=== PATIENT | female | born 1965 | race Asian ===

== ENCOUNTER 2022-09-23 10:35 | Emergency (ER) | payer BC, SELFPAY ==
[2022-09-23] MEDS ORDERED: NA CHLORIDE 0.9% 1,000 ML ONE (10:59)
[2022-09-23 11:16] LABS: Absolute Lymphocytes (CBC) 1.1 K/uL (0.7-4.9); Hematocrit 37.9 % (36.0-45.0); Lymphocytes % 21.3 % (15.3-44.8); MCV 94.4 fL (80-100); MPV 9.3 fL (7.6-11.3); RBC Red Blood Cell Count 4.02 M/uL (3.86-4.86)
[2022-09-23 11:32] LABS: Albumin 3.6 g/dL (3.4-5.0); Bilirubin Direct 0.1 mg/dL (0-0.2); Bilirubin Indirect, Calculated 0.3 mg/dL (0.2-0.8); Bilirubin Total 0.4 mg/dL (0.2-1.0); Magnesium 2.2 mg/dL (1.6-2.4); Protein, Total 8.3 g/dL (6.4-8.2); Troponin High Sensitivity 3.8 pg/mL (<58.9)
[2022-09-23] MEDS ORDERED: POTASSIUM 25 MEQ EFFERV TAB ONE (11:53)
--- NOTE | 2022-09-23 11:55 | ER ---
Nurse's Notes [facility] Name: Jessica Frazier Age: 57 yrs Sex: Female : 1965 Arrival Date: 09/23/2022 Time: 10:35 Bed 7 Private MD: Diagnosis: Heat exhaustion, unspecified;Syncope Near;Hypokalemia Presentation: 09/23 10:36 Chief complaint: EMS states: they picked the patient up from [place]. patient had been ap3 out fishing this morning, when she got hot and started feeling fatigued. Coronavirus screen: At this time, the client does not indicate any symptoms associated with coronavirus-19. Ebola Screen: No symptoms or risks identified at this time. Initial Sepsis Screen: Does the patient meet any 2 criteria? No. Patient's initial sepsis screen is negative. Does the patient have a suspected source of infection? No. Patient's initial sepsis screen is negative. Risk Assessment: Do you want to hurt yourself or someone else? Patient reports no desire to harm self or others. Onset of symptoms was September 23, 2022. 10:36 Method Of Arrival: EMS: [facility] ap3 10:36 Acuity: BONILLA 3 ap3 Triage Assessment: 10:38 General: Appears in no apparent distress. Behavior is calm, cooperative. Pain: Denies ap3 pain. Neuro: Level of Consciousness is awake, alert, obeys commands, Oriented to person, place, time, Reports she was feeling weak approx 30min [employer], but she states that has resolved.. Cardiovascular: Patient's skin is warm and dry. Respiratory: Airway is patent Respiratory effort is even, unlabored, Respiratory pattern is regular, symmetrical. Historical: - Allergies: 10:37 No Known Allergies; ap3 - Home Meds: 10:37 unknown blood pressure medicaion for High Blood Pressure [Active]; ap3 - PMHx: 10:37 Hypertensive disorder; ap3 - Immunization history:: Client reports receiving the 2nd dose of the Covid vaccine. - Social history:: Smoking status: Patient denies any tobacco usage or history of. Screenin:38 Abuse screen: Denies threats or abuse. Nutritional screening: No deficits noted. ap3 Tuberculosis screening: No symptoms or risk factors identified. 12:08 [facility] ED Fall Risk Assessment (Adult) History of falling in the last 3 months, ap3 including since admission No falls in past 3 months (0 pts) Confusion or Disorientation No (0 pts) Intoxicated or Sedated No (0 pts) Impaired Gait No (0 pts) Mobility Assist Device Used No (0 pt) Altered Elimination No (0 pt) Score/Fall Risk Level 0 - 2 = Low Risk. Vital Signs: 10:36 BP 94 / 61; Pulse 62; Resp 18; Temp 98.8; Pulse Ox 98% ; Weight 65 kg; Pain 0/10; ap3 10:36 Pain Scale: Adult ap3 ED Course: 10:36 Patient arrived in ED. ap3 10:37 Triage completed. ap3 10:38 Arm band placed on left wrist. ap3 10:39 Patient has correct armband on for positive identification. Bed in low position. Call ap3 light in reach. Side rails up X2. Pulse ox on. NIBP on. Door closed. Noise minimized. 10:40 Rosemary Oneill [facility]-C [facility]. sb4 10:40 Lucas Chamberlain MD is Attending Physician. sb4 10:47 Светлана Case, MIRTA is Primary Nurse. ap3 11:01 Initial lab(s) drawn, by md, sent to lab. Inserted saline lock: 20 gauge in right aa5 antecubital area, using aseptic technique. Blood collected. 12:08 No provider procedures requiring assistance completed. IV discontinued, intact, ap3 bleeding controlled, No redness/swelling at site. Pressure dressing applied. Administered Medications: 11:01 Drug: NS 0.9% IV 1000 ml Route: IV; Rate: 1 bolus; Site: right antecubital; aa5 12:09 Follow up: IV Status: Completed infusion ap3 11:51 Drug: Potassium PO Effervescent Tablet 50 mEq Route: PO; ap3 12:09 Follow up: Response: No adverse reaction ap3 Medication: 12:08 VIS not applicable for this client. ap3 Outcome: 11:55 Discharge ordered by . sb4 12:08 Discharged to home ambulatory, with family. ap3 12:08 Condition: good 12:08 Discharge instructions given to patient, Instructed on discharge instructions, follow up and referral plans. Demonstrated understanding of instructions, follow-up care. 12:23 Patient left the ED. ap3 Signatures: Sushma Yepez RN RN aa5 Светална Case RN RN ap3 Rosemary Oneill, PA-C PA-C sb4
--- NOTE | 2022-09-23 11:55 | EDPHYS ---
Physician Documentation [facility] Name: Jessica Frazier Age: 57 yrs Sex: Female : 1965 Arrival Date: 09/23/2022 Time: 10:35 Bed 7 Private MD: ED Physician Lucas Chamberlain HPI: 09/23 11:41 This 57 yrs old Female presents to ER via EMS with complaints of Heat Exposure. sb4 11:41 57-year-old female with past medical history of hypertension presents via EMS after a sb4 near syncopal episode. [place]. She had to sit down and bystanders help cool her off by pouring water onto her. Upon arrival to ED, she reports feeling improved. Historical: - Allergies: 10:37 No Known Allergies; ap3 - Home Meds: 10:37 unknown blood pressure medicaion for High Blood Pressure [Active]; ap3 - PMHx: 10:37 Hypertensive disorder; ap3 - Immunization history:: Client reports receiving the 2nd dose of the Covid vaccine. - Social history:: Smoking status: Patient denies any tobacco usage or history of. ROS: 11:41 Constitutional: Negative for fever, chills, and weight loss, Eyes: Negative for injury, sb4 pain, redness, and discharge, Cardiovascular: Negative for chest pain, palpitations, and edema, Respiratory: Negative for shortness of breath, cough, wheezing, and pleuritic chest pain. 11:41 Abdomen/GI: Positive for nausea, Negative for abdominal pain, vomiting. 11:41 Neuro: Positive for dizziness, near syncope, weakness, Negative for altered mental status, gait disturbance, loss of consciousness, syncope, visual changes. Exam: 11:41 Constitutional: This is a well developed, well nourished patient who is awake, alert, sb4 and in no acute distress. Head/Face: Normocephalic, atraumatic. Eyes: Extra-ocular motions intact. Periorbital areas with no swelling, redness, or edema. Cardiovascular: Regular rate and rhythm with a normal S1 and S2. Respiratory: Lungs have equal breath sounds bilaterally, clear to auscultation and percussion. No rales, rhonchi or wheezes noted. No increased work of breathing, no retractions or nasal flaring. Abdomen/GI: Soft, non-tender, no distension. Skin: Warm, dry with normal turgor. Normal color with no rashes, no lesions, and no evidence of cellulitis. MS/ Extremity: Pulses equal, no cyanosis. Neurovascular intact. Full, normal range of motion. Neuro: Awake and alert, GCS 15, oriented to person, place, time, and situation. Cranial nerves II-XII grossly intact. Motor strength 5/5 in all extremities. Sensory grossly intact. Cerebellar exam normal. Normal gait. 11:41 ENT: Dry mucous membranes. Vital Signs: 10:36 BP 94 / 61; Pulse 62; Resp 18; Temp 98.8; Pulse Ox 98% ; Weight 65 kg; Pain 0/10; ap3 10:36 Pain Scale: Adult ap3 MDM: 10:40 Patient medically screened. sb4 11:41 Differential Diagnosis Acute SC, heat exhaustion, dehydration, rhabdomyolysis. Data sb4 reviewed: vital signs, nurses notes, lab test result(s), and as a result, I will discharge patient. Consideration of Admission/Observation Escalation of care including admission/observation considered. Care significantly affected by the following chronic conditions: Hypertension. Counseling: I had a detailed discussion with the patient and/or guardian regarding: the historical points, exam findings, and any diagnostic results supporting the discharge/admit diagnosis, lab results, to return to the emergency department if symptoms worsen or persist or if there are any questions or concerns that arise at home. 09/23 10:48 Order name: Basic Metabolic Panel; Complete Time: [facility] 09/23 10:48 Order name: CBC with Diff; Complete Time: 11: [facility] 09/23 10:48 Order name: LFT's; Complete Time: : 4 09/23 10:48 Order name: Magnesium; Complete Time: : 4 09/23 10:48 Order name: Troponin HS; Complete Time: : 4 09/23 10:48 Order name: Lipase; Complete Time: : 4 09/23 10:48 Order name: EKG; Complete Time: 10:48 4 09/23 10:48 Order name: Cardiac monitoring; Complete Time: 11: [facility] 09/23 10:48 Order name: EKG - Nurse/Tech; Complete Time: 11: sb4 09/23 10:48 Order name: IV Saline Lock; Complete Time: 11:01 sb4 09/23 10:48 Order name: Labs collected and sent; Complete Time: 11: sb4 09/23 10:48 Order name: O2 Per Protocol; Complete Time: 10:57 sb4 09/23 10:48 Order name: O2 Sat Monitoring; Complete Time: 10:57 sb4 EC:45 Rate is 62 beats/min. Rhythm is regular, Normal Sinus Rhythm. QRS [place] is Normal. NC sb4 interval is normal at 154 msec. QRS interval is normal at 88 msec. QT interval is normal at 436 msec. No Q waves. T waves are Normal. Clinical impression: Normal ECG. Interpreted by me. Reviewed by me. Administered Medications: 11: Drug: NS 0.9% IV 1000 ml Route: IV; Rate: 1 bolus; Site: right antecubital; aa5 12:09 Follow up: IV Status: Completed infusion ap3 11:51 Drug: Potassium PO Effervescent Tablet 50 mEq Route: PO; ap3 12:09 Follow up: Response: No adverse reaction ap3 Disposition Summary: 09/23/22 11:55 Discharge Ordered Location: Home sb4 Problem: new sb4 Symptoms: have improved sb4 Condition: Stable sb4 Diagnosis - Heat exhaustion, unspecified sb4 - Syncope Near sb4 - Hypokalemia sb4 Followup: sb4 - With: Private Physician - When: - Reason: Recheck today's complaints, Continuance of care, Re-evaluation by your physician Discharge Instructions: - Discharge Summary Sheet sb4 - Near-Syncope sb4 - Hypokalemia sb4 - Preventing Heat Exhaustion, Adult sb4 Forms: - Medication Reconciliation Form sb4 - Thank You Letter sb4 - Antibiotic Education sb4 - Prescription Opioid Use sb4 - [email or web address] sb4 Signatures: Dispatcher [employer] Sushma Frank RN RN aa5 Светлана Case RN RN ap3 Rosemary Oneill PA-C PA-C sb4
[2022-09-23 12:51] VITALS: BP 94/61; TEMP 98.8; O2SAT 98
--- NOTE | 2022-09-25 17:17 | EKG ---
Test Date: 2022-09-23 Test Time: 11:02:26 Compensation Manager: ALP MEASUREMENT RESULTS: Intervals: Rate: 62 NE: 154 QRSD: 88 QT: 436 QTc: 442 [place]: P: 63 NE: 154 QRS: 80 T: 71 INTERPRETIVE STATEMENTS: Normal sinus rhythm Normal ECG No previous ECG available for comparison Electronically Signed On 09-25-22 17:13:42 CDT by Byron Fontana
== END 2022-09-23 12:23 | disposition home or self-care (01) ==
LOC: ER 10:35
DX: T67.5XXA Heat exhaustion, unspecified, initial encounter (principal); X32.XXXA Exposure to sunlight, initial encounter; Y93.89 Activity, other specified; Y92.832 Beach as the place of occurrence of the external cause; R55 Syncope and collapse; E87.6 Hypokalemia; I10 Essential (primary) hypertension
CPT/HCPCS: 93005; 85025; 80048; 36415; 83735; 80076; 84484; 83690; 96360; 99284; J7030